=== PATIENT | male | born 1980 | race Caucasian/White ===

== ENCOUNTER 2022-06-04 08:31 | Day surgery (SDC) | payer OTHER, SELFPAY ==
[2022-05-07 10:53] VITALS: BMI 28.4
[2022-05-21 14:09] VITALS: BMI 27.8
[2022-06-04 08:50] VITALS: BP 126/84; PULSE 55; RESP 20; TEMP 36.7; O2SAT 100
--- NOTE | 2022-06-04 09:19 | P.PNAN_ITS ---
Anes - Initial Pre Proc Eval Procedure: Operation Date: 06/04/22 10:00 Proposed Procedures p Esophagogastroduodenoscopy - William Mortensen MD Date/Time: 06/04/22 09:19 Surgeon: William Mortensen MD Pre Op Diagnosis: Dysphagia Patient Data Age: 41 Gender: M Height: 1.8 m Weight: 89.4 kg Last Vital Signs Temp 36.7 C 06/04/22 08:50 Pulse 55 L 06/04/22 08:50 Resp 20 06/04/22 08:50 BP 126/84 06/04/22 08:50 Pulse Ox 100 06/04/22 08:50 O2 Del Method Room Air 06/04/22 08:50 Allergies Allergy/AdvReac Type Severity Reaction Status Date / Time Penicillins Allergy Unknown Hives Verified 06/04/22 08:55 Home Medications Medication Instructions Recorded Confirmed Type lisinopril 20 mg tablet 20 mg PO DAILY #30 tabs 04/26/22 06/04/22 Rx Patient hx anesthesia problems: none Family hx anesthesia problems: none Results Review: All pre-operative results and documents have been reviewed as part of the pre- operative evaluation. [facility] Past Medical History Medical History Dysphagia Elevated blood pressure reading without diagnosis of hypertension Overweight with body mass index (BMI) of 28 to 28.9 in adult Screening for lipid disorders Screening for prostate cancer Family History Family History Father Hypertension Family history of cardiovascular disease Malignant neoplasm of prostate Other Diabetes mellitus Social History Social History Smoking status: Never smoker Alcohol intake: current Substance use: never Substance use type: does not use Lack of Transportation: No Lack of Food: Never True Current Housing: I Have Housing Concerned About Future Housing: No Difficulty Paying Gas/Electric Bills: No Difficulty Paying for Meds: No Currently Unemployed: No Education: Bachelor's Degree Difficulty w/ Childcare or Family Care: No Living arrangements: with family Occupation/Education: occupation Spiritual care concerns: No Agree to blood products: Yes Anes - Eval Final PreProcedure Day of Procedure 06/04/22 09:19 Patient weight: overweight Heart: regular rate and rhythm Lungs: clear to auscultation Airway: Mallampati scale Neurological: alert and oriented ASA classification: II Emergent: no Anesthetic plan: proceed Anesthesia type and monitoring: general GIVS and standard monitoring Results Review: All pre-operative results and documents have been reviewed as part of the pre- operative evaluation. Informed Consent: The patient's anesthetic plan and its attendant risks and benefits were discussed with the patient/family/POA. Questions were solicited and answers provided to the satisfaction of the patient/family/POA.
[2022-06-04] MEDS: LACTATED RINGERS 1,000 ML 150 ML IV CONT (09:24)
--- NOTE | 2022-06-04 09:29 | PM.HPGS ---
History of Present Illness History of Present Illness Consent: Risks, benefits, and alternatives have been discussed and questions answered. Patient agrees to proceed with procedure. Chief complaint: Dysphagia Narrative: Dirk Akins is a 41 year old male Presents for EGD. Patient reports over the last several years. He intermittently has had food caught in the mid substernal portion the chest. He was subsequently unable eat or swallow until this will past. Typically this happens with meat And larger pieces of food. He denies any abdominal pain. He states many years ago may have had heartburn. Reports both mother and father have had esophageal strictures requiring dilatation. Patient presents today for EGD. Review of Systems Review of Systems: review of systems noncontributory. [facility] Past Medical History Medical History Dysphagia Elevated blood pressure reading without diagnosis of hypertension Overweight with body mass index (BMI) of 28 to 28.9 in adult Screening for lipid disorders Screening for prostate cancer Family History Family History Father Hypertension Family history of cardiovascular disease Malignant neoplasm of prostate Other Diabetes mellitus Social History Social History Smoking status: Never smoker Alcohol intake: current Substance use: never Substance use type: does not use Lack of Transportation: No Lack of Food: Never True Current Housing: I Have Housing Concerned About Future Housing: No Difficulty Paying Gas/Electric Bills: No Difficulty Paying for Meds: No Currently Unemployed: No Education: Bachelor's Degree Difficulty w/ Childcare or Family Care: No Living arrangements: with family Occupation/Education: occupation Spiritual care concerns: No Agree to blood products: Yes Meds Home Medications and Allergies Home Medications Medication Instructions Recorded Confirmed Type lisinopril 20 mg tablet 20 mg PO DAILY #30 tabs 04/26/22 06/04/22 Rx Allergies Allergy/AdvReac Type Severity Reaction Status Date / Time Penicillins Allergy Unknown Hives Verified 06/04/22 08:55 Vital Signs Vital Signs - 24 hr 06/04/22 08:50 Temperature 98.1 F Pulse Rate 55 L Respiratory Rate 20 Blood Pressure 126/84 Pulse Oximetry 100 Oxygen Delivery Room Air Exam Narrative: Physical exam reveals patient to be alert. Vital signs stable. HEENT exam is unremarkable. Patient is anicteric. Lungs are clear to auscultation and percussion. Heart is without murmur or extra sounds. Abdomen bowel sounds are present soft nontender with no organomegaly. Digital external rectal exam is normal. Assessment and Plan Assessment and plan (1) Dysphagia: Qualifiers: Dysphagia type: pharyngeal phase Qualified Code(s): R13.13 - Dysphagia, pharyngeal phase Code(s): R13.10 - Dysphagia, unspecified Status: Acute Assessment and Plan: Patient with complaints of dysphagia. Appears to be consistent with esophageal narrowing. Plan for EGD to assess more thoroughly. Possibly for dilatation. Further recommendations may be given after endoscopy.
[2022-06-04 10:19] VITALS: BP 103/67; PULSE 44; RESP 16; O2SAT 100
[2022-06-04 10:29] VITALS: BP 117/81; PULSE 50; RESP 16; O2SAT 100
[2022-06-04 10:39] VITALS: BP 112/70; PULSE 48; RESP 20; O2SAT 100
--- NOTE | 2022-06-04 10:55 | WPDANESPN ---
Anes - Prog Note Post-Op Date/Time: 06/04/22 10:55 Cardiovascular status: normal Respiratory status: normal Airway patency: baseline Mental status: baseline Post-Op hydration status: normal Vital Signs: Last Vital Signs Temp 36.7 C 06/04/22 08:50 Pulse 48 L 06/04/22 10:39 Resp 20 06/04/22 10:39 BP 112/70 06/04/22 10:39 Pulse Ox 100 06/04/22 10:39 O2 Del Method Room Air 06/04/22 10:39 Pain Score (VAS): 0/10 I/O: Intake & Output 06/03/22 06/04/22 06/04/22 23:59 07:59 15:59 Intake Total 550 Balance 550 Patient Feedback: Patient satisfied with anesthetic care.
== END 2022-06-04 10:50 | disposition home or self-care (01) ==
PROVIDERS: PCP Family Medicine; Visit Provider Internal Medicine Gastroenterology
PROC: 0DJ08ZZ Inspection of Upper Intestinal Tract, Via Natural or Artificial Opening Endoscopic (ICD-10-PCS; CPT 43235; principal; 2022-06-04 10:00)
DX: R13.13 Dysphagia, pharyngeal phase (principal)
CPT/HCPCS: 43450

== ENCOUNTER 2022-10-01 11:38 | Emergency (ER) | payer OTHER, SELFPAY ==
--- NOTE | ~2022-10-01 | XR_ITS ---
EXAMINATION: XR chest 2V 10/01/2022 12:59 INDICATION: Chest pressure. hypertension. PROCEDURE: 2 view chest COMPARISON: No prior studies for comparison. FINDINGS: The lungs are clear. The cardiomediastinal silhouette is within normal limits. There are no pleural effusions. There is no pneumothorax suspected. IMPRESSION: 1: NO ACUTE CARDIOPULMONARY DISEASE. Reviewed, dictated and finalized at location B.
--- NOTE | 2022-10-01 11:39 | ECG_ITS ---
Measurements Intervals [place] Rate: 47 P: 32 OK: 152 QRS: 6 QRSD: 94 T: 16 QT: 402 QTc: 359 Interpretive Statements SINUS BRADYCARDIA OTHERWISE NORMAL ELECTROCARDIOGRAM NO PREVIOUS ECG AVAILABLE FOR COMPARISON Electronically Signed On 10-01-2022 12:09:44 CDT by Leodan Balderrama M.D.
[2022-10-01 11:44] VITALS: BP 132/79; PULSE 56; RESP 20; TEMP 36.2; O2SAT 100
[2022-10-01 12:02] LABS: Basophils Percent Auto 0.4 % (0.2-1.2); Eosinophils Percent Auto 0.6 % (0-4.4); Hematocrit 45.4 % (42.0-52.0); Hemoglobin 15.5 g/dL (14.0-18.0); Immature Granulocyte Absolute 0.02 K/mm3 (0.00-0.031); Immature Granulocyte Percent A 0.3 % (0-0.5); Lymphocytes Absolute Auto 1.38 K/mm3 (0.9-3.2); Lymphocytes Percent Auto 20.2 % (18.3-44.2); Mean Corpuscular HGB Conc 34.1 g/dl (32-36); Mean Corpuscular Hemoglobin 30.2 pg (26-34); Mean Corpuscular Volume 88.5 fl (80-100); Mean Platelet Volume 11.3 fl (7.4-10.4); Monocytes Absolute Auto 0.4 K/mm3 (0.1-0.6); Monocytes Percent Auto 6.1 % (2.6-8.5); Neutrophils Absolute Auto 4.9 K/mm3 (1.3-6.7); Neutrophils Percent Auto 72.4 % (45.5-73.1); Platelet Count Result 177 k/mm3 (150-375); Red Blood Count 5.13 M/mm3 (4.6-6.20); White Blood Count 6.8 K/mm3 (4.5-10.0)
[2022-10-01 12:12] LABS: Alanine Aminotransferase 55 U/L (6-50); Albumin Level 4.8 g/dL (3.5-5.1); Alkaline Phosphatase 40 U/L (38-126); Anion Gap 7 mmol/L (8-16); Aspartate Amino Transferase 37 U/L (17-59); Bilirubin,Total 0.7 mg/dL (0.2-1.3); Blood Urea Nitrogen 16 mg/dL (9-20); Calcium 9.6 mg/dL (8.4-10.2); Carbon Dioxide 29 mmol/L (22-30); Chloride 104 mmol/L (98-107); Estimated CRCL calculation 82 ml/min; Estimated Glomerular Filt Rate > 60; Glucose 98 mg/dL (65-110); Lipase 44 U/L (23-300); Potassium 4.3 mmol/L (3.4-5.0); Sodium 140 mmol/L (137-145)
[2022-10-01 12:18] LABS: INR 0.9; Prothrombin Time 12.8 Seconds (11.1-14.7)
[2022-10-01 12:19] LABS: Partial Thromboplastin Time 29.5 SECONDS (22.3-36.8)
[2022-10-01 12:24] LABS: Troponin I < 0.012 ng/mL (0.000-0.034)
--- NOTE | 2022-10-01 14:35 | ED.CHESTPAIN ---
HPI - Chest Pain General Chief Complaint: Chest Pain Stated Complaint: chest tightness Time Seen by Provider: 10/01/22 14:26 History of Present Illness HPI narrative: Patient is a 42-year-old male with history of hypertension here with left-sided chest pain and dizziness. He states that he has had intermittent left-sided chest pain for years, usually self resolves after a few minutes. This episode began yesterday and persisted until arrival to the emergency department. He notes that usually radiates into his left shoulder which it did today. When his chest pain began yesterday he began having bilateral arm and hand tingling. He additionally had an episode of dizziness which lasted approximately 2 hours. No prior cardiac history. He has never seen a planning engineer. He had 1 prior visit to the emergency department several years ago for chest pain and he had a negative workup at that time. He does note that he has been struggling with anxiety and contacted his primary care doctor today who advised to come into the emergency department to be evaluated for this chest pain. Of note patient did have a long trip in his car traveling back from [place] within the last couple of weeks. He additionally drives approximately an hour each way a day for work. No prior PE or DVT. He has a history of AFib in his father in his 70s, no known CAD. No cough, congestion, fever, chills. No current symptoms. Related Data Allergies Allergy/AdvReac Type Severity Reaction Status Date / Time Penicillins Allergy Unknown Hives Verified 06/04/22 08:55 Review of Systems Review of Systems: CONSTITUTIONAL: Denies fever, chills, or sweats. EYES: Denies visual changes, redness, or discharge. ENT: Denies rhinorrhea, congestion, sore throat, or otalgia. CARDIOVASCULAR: Chest pain, dizziness RESPIRATORY: Denies cough or dyspnea. GASTROINTESTINAL: Denies abdominal pain, nausea, vomiting, or diarrhea. MUSCULOSKELETAL: Denies back pain, joint pain, or myalgia. NEUROLOGIC: Denies headache, numbness, or weakness. PSYCHIATRIC: anxiety, no depression. [facility] Past Medical History Medical History Dysphagia Elevated blood pressure reading without diagnosis of hypertension Overweight with body mass index (BMI) of 28 to 28.9 in adult Screening for lipid disorders Screening for prostate cancer Family History Family History Father Hypertension Family history of cardiovascular disease Malignant neoplasm of prostate Other Diabetes mellitus Social History Social History Smoking status: Never smoker Alcohol intake: current Substance use: never Substance use type: does not use Lack of Transportation: No Lack of Food: Never True Current Housing: I Have Housing Concerned About Future Housing: No Difficulty Paying Gas/Electric Bills: No Difficulty Paying for Meds: No Currently Unemployed: No Education: Bachelor's Degree Difficulty w/ Childcare or Family Care: No Living arrangements: with family Occupation/Education: occupation Spiritual care concerns: No Agree to blood products: Yes Exam Narrative: GENERAL: Well-appearing, well-nourished, and in no acute distress. HEAD: Normocephalic, atraumatic. EYES: PERRLA and EOMI. ENT: Nares clear. Mucous membranes moist. NECK: Supple. CHEST: Clear to auscultation. No respiratory distress. HEART: Regular rate and rhythm. Normal peripheral pulses. ABDOMEN: Soft, nontender, nondistended. EXTREMITIES: Normal range of motion. No edema. NO calf tenderness. SKIN: Warm, dry, no rash. NEURO: No focal deficits. Alert and oriented x3. PSYCH: Normal mood and affect. Course Course Emergency Course: Chart review performed. Patient here for chest tightness and dizziness. Triage vitals grossly normal. Chart shows history of hyper
[2022-10-01] MEDS: ASPIRIN 81 MG CHEWABLE TABLET 324 MG PO (14:50)
[2022-10-01 15:23] LABS: D Dimer < 0.27 ug/mL (<0.48)
[2022-10-01 15:26] LABS: Troponin I < 0.012 ng/mL (0.000-0.034)
[2022-10-01 16:06] VITALS: BP 128/72; PULSE 45; RESP 18; TEMP 36.6; O2SAT 100
== END 2022-10-01 16:07 | disposition home or self-care (01) ==
PROVIDERS: Emergency Medicine; Emergency Provider Student in an Organized Health Care Education/Training Program; PCP Family Medicine
DX: R07.9 Chest pain, unspecified (principal); I10 Essential (primary) hypertension; E66.3 Overweight; Z68.27 Body mass index [BMI] 27.0-27.9, adult; R00.1 Bradycardia, unspecified
CPT/HCPCS: 36415; 71046; 80053; 83690; 84484; 85025; 85380; 85610; 85730; 93005; 99284; A9270